=== PATIENT | male | born 1940 | race Caucasian/White ===

== ENCOUNTER 2018-09-24 14:00 | Emergency (ER) | payer MEDICARE ==
[2018-09-24] MEDS ORDERED: LIDOCAINE 1% INJ-PF (10 MG/ML) 30 ML SDV INJ ONE (15:24)
--- NOTE | 2018-09-24 15:24 | ER Document Report ---
ED General - General Chief Complaint: Weakness Stated Complaint: WEAKNESS Time Seen by Provider: 09/24/18 14:57 Notes: This is an 78-year-old male to the emergency department chief complaint of altered mental status. Family member states that they have not seen him for a few days. Here in town visiting. Noticed that he was more confused. Seemed to not be eating and drinking as much. Seem to be complaining of abdominal pain. States that they recently had a evaluation by his primary care doctor and everything was "normal". Patient denies any fever, chills, sweats. TRAVEL OUTSIDE OF THE [place] IN LAST 30 DAYS: No - HPI Onset/Duration: Gradual, Constant Quality of pain: Achy Severity: Moderate Pain Level: 1 Associated symptoms: Body/muscle aches, Slow to respond, Weakness - Related Data Allergies/Adverse Reactions: No Known Allergies Allergy (Verified 09/24/18 15:23) Past Medical History - General Information source: Patient, Relative - Social History Smoking Status: Former Smoker Frequency of alcohol use: None Drug Abuse: None Lives with: Family Family History: Reviewed & Not Pertinent - Past Medical History Cardiac Medical History: Reports: Hx Atrial Fibrillation Neurological Medical History: Reports: Other - Dementia Malignancy Medical History: Reports None Review of Systems - Review of Systems Notes: Constitutional: denies: Chills, Diaphoresis, Fever, complaining of weakness EENT: denies: Eye discharge, Blurred vision, Tearing, Double vision, Nose congestion, Nose discharge, Throat swelling, Mouth pain Cardiovascular: denies: Palpitations, Heart racing, Orthopnea, Dyspnea, Chest pain Respiratory: denies: Cough, Hurts to breathe, Wheezing, Shortness of breath Gastrointestinal: denies: Abdominal pain, Diarrhea, Nausea, Vomiting, Black stools, bright red blood in stool Genitourinary: denies: Burning, Dysuria, Discharge, Frequency, Flank pain, Hematuria Musculoskeletal: denies: Joint pain, Joint swelling, Muscle pain, Muscle stiffness, back pain Hematologic/Lymphatic: denies: Anemia, Easy bleeding, Easy bruising, Blood clots Neurological/Psychological: Complaining of dementia and confusion Skin: No lesions, no masses, no skin breakdown, no abscesses Physical Exam - Vital signs Vitals: BP 118/40 L 09/24/18 14:46 Interpretation: Bradycardic - General General appearance: Appears well, Alert - HEENT Head: Normocephalic, Atraumatic Eyes: Normal Pupils: PERRL Mucous membranes: Dry Pharynx: Normal Neck: Normal - Respiratory Respiratory status: No respiratory distress Chest status: Nontender Breath sounds: Rales Chest palpation: Normal - Cardiovascular Rhythm: Regular Heart sounds: Normal auscultation Murmur: No - Abdominal Inspection: Normal Distension: No distension Bowel sounds: Normal Tenderness: Nontender Organomegaly: No organomegaly - Back Back: Normal, Nontender - Extremities General upper extremity: Normal inspection, Nontender, Normal color, Normal ROM , Normal temperature General lower extremity: Normal inspection, Nontender, Normal color, Normal ROM , Normal temperature, Normal weight bearing. No: Meme's sign - Neurological Neuro grossly intact: Yes Cognition: Confused, Short term memory loss Pati Coma Scale Eye Opening: Spontaneous Rome Coma Scale Verbal: Oriented [place] Coma Scale Motor: Obeys Commands Rome Coma Scale Total: 15 Speech: Normal Motor strength normal: LUE, RUE, LLE, RLE Sensory: Normal - Psychological Associated symptoms: Normal affect, Normal mood - Skin Skin Temperature: Warm Skin Moisture: Dry Skin Color: Other - Patient has a 5 cm x 5 cm cyst on the left posterior back/ scapular area. Mild amount of redness but no lymphangitic streaking or signs of significant cellulitis. Course - Re-evaluation Re-evalutation: 09/24/18 19:40 Patient has multiple things wrong with him. Has acute transaminitis, congestive heart failure, acute kidney injury, confusion. Ultrasound was ordered which showed some mass lesions in the liver. CT scan of the head chest abdomen and pelvis performed without contrast. 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 Also may have a pneumonia. Based on all of these things going on patient needs a higher level of care. Family members live closer to [place] and is requesting that we send him there. At this time I am comfortable with that. Patient has been accepted by Dr. Larkin at [facility]. Giving patient's a little bit of fluid and some IV antibiotics at this time. Initially I was thinking I would I&D the lesion on the left of the back however I think I will leave that at this time as I do not want this to be some sort of malignant complication or issue. Family members are comfortable with this plan. Will transfer shortly. 09/24/18 19:42 Chest X-Ray 09/24/18 15:23 IMPRESSION: Chronic bibasilar interstitial change. Borderline cardiomegaly. Abdomen Ultrasound 09/24/18 16:20 IMPRESSION: Multiple low-density lesions in the liver suggestive of metastases. Borderline common bile duct. Cholelithiasis. Renal cysts. Abdomen/Pelvis CT 09/24/18 17:57 IMPRESSION: 1. Multiple low-density lesions in the liver suggestive of metastatic disease. 2. 3 cm heterogeneous apparently solid lesion in the right kidney concerning for neoplasm. Recommend ultrasound. 3. There is what appears to be a well-circumscribed cyst in the left kidney that measures some 20 Hounsfield units. This may represent a slightly hyperdense cyst. 4. Bilateral inguinal hernias containing unobstructed bowel. Head CT 09/24/18 17:57 IMPRESSION: Microvascular ischemia and generalized atrophy. No acute intracranial imaging findings. Cannot exclude chronic small left subdural fluid collection, although this may merely be secondary to the atrophy. EVIDENCE OF ACUTE STROKE: NO. Chest CT 09/24/18 18:26 IMPRESSION: 1. Mild pulmonary emphysema. 2. There is fairly dense opacification in the right lower lobe. There is also diffuse fine nodularity in the right lower lobe raising the possibility of an atypical pneumonia. 3. There are couple small subpleural nodules. Follow-up as described below. 4. Cardiomegaly with no marcel pulmonary edema. 5. Mild mediastinal adenopathy. Laboratory 09/24/18 09/24/18 09/24/18 15:03 15:03 15:03 WBC 13.1 H RBC 3.66 L Hgb 11.4 L Hct 34.1 L MCV 93 MCH 31.1 MCHC 33.4 RDW 13.1 Plt Count 343 Seg Neutrophils % 80.2 H Lymphocytes % 8.8 L Monocytes % 10.1 Eosinophils % 0.7 Basophils % 0.2 Absolute Neutrophils 10.5 H Absolute Lymphocytes 1.1 Absolute Monocytes 1.3 Absolute Eosinophils 0.1 Absolute Basophils 0.0 Sodium 139.8 Potassium 5.2 H Chloride 102 Carbon Dioxide 25 Anion Gap 13 BUN 59 H Creatinine 2.43 H Est GFR ( Amer) 31 L Est GFR (Non-Af Amer) 26 L Glucose 126 H Lactic Acid 1.2 Calcium 11.2 H Total Bilirubin 0.4 Direct Bilirubin 0.4 Neonat Total Bilirubin Not Reportable Neonat Direct Bilirubin Not Reportable Neonat Indirect Bili Not Reportable AST 116 H ALT 143 H Alkaline Phosphatase 252 H Creatine Kinase 23 L CK-MB (CK-2) Troponin I NT-Pro-B Natriuret Pep Total Protein 6.5 Albumin 3.1 L Lipase Urine Color Urine Appearance Urine pH Ur Specific Webb Urine Protein Urine Glucose (UA) Urine Ketones Urine Blood Urine Nitrite Urine Bilirubin Urine Urobilinogen Ur Leukocyte Esterase Urine WBC (Auto) Urine RBC (Auto) U Hyaline Cast (Auto) Urine Bacteria (Auto) Squamous Epi Cells Auto Calcium Oxalate Cr Auto Urine Mucus (Auto) Urine Ascorbic Acid 09/24/18 09/24/18 09/24/18 15:03 15:03 15:03 WBC RBC Hgb Hct MCV MCH MCHC RDW Plt Count Seg Neutrophils % Lymphocytes % Monocytes % Eosinophils % Basophils % Absolute Neutrophils Absolute Lymphocytes Absolute Monocytes Absolute Eosinophils Absolute Basophils Sodium Potassium Chloride Carbon Dioxide Anion Gap BUN Creatinine Est GFR ( Amer) Est GFR (Non-Af Amer) Glucose Lactic Acid Calcium Total Bilirubin Direct Bilirubin Neonat Total Bilirubin Neonat Direct Bilirubin Neonat Indirect Bili AST ALT Alkaline Phosphatase Creatine Kinase CK-MB (CK-2) 1.71 Troponin I 0.042 NT-Pro-B Natriuret Pep 7870 H Total Protein Albumin Lipase 112.6 Urine Color Urine Appearance Urine pH Ur Specific Webb Urine Protein Urine Glucose (UA) Urine Ketones Urine Blood Urine Nitrite Urine Bilirubin Urine Urobilinogen Ur Leukocyte Esterase Urine WBC (Auto) Urine RBC (Auto) U Hyaline Cast (Auto) Urine Bacteria (Auto) Squamous Epi Cells Auto Calcium Oxalate Cr Auto Urine Mucus (Auto) Urine Ascorbic Acid 09/24/18 16:45 WBC RBC Hgb Hct MCV MCH MCHC RDW Plt Count Seg Neutrophils % Lymphocytes % Monocytes % Eosinophils % Basophils % Absolute Neutrophils Absolute Lymphocytes Absolute Monocytes Absolute Eosinophils Absolute Basophils Sodium Potassium Chloride Carbon Dioxide Anion Gap BUN Creatinine Est GFR ( Amer) Est GFR (Non-Af Amer) Glucose Lactic Acid Calcium Total Bilirubin Direct Bilirubin Neonat Total Bilirubin Neonat Direct Bilirubin Neonat Indirect Bili AST ALT Alkaline Phosphatase Creatine Kinase CK-MB (CK-2) Troponin I NT-Pro-B Natriuret Pep Total Protein Albumin Lipase Urine Color YELLOW Urine Appearance CLOUDY Urine pH 5.0 Ur Specific Webb 1.019 Urine Protein 100 H Urine Glucose (UA) NEGATIVE Urine Ketones NEGATIVE Urine Blood NEGATIVE Urine Nitrite NEGATIVE Urine Bilirubin NEGATIVE Urine Urobilinogen 2.0 H Ur Leukocyte Esterase NEGATIVE Urine WBC (Auto) 3 Urine RBC (Auto) 2 U Hyaline Cast (Auto) 165 Urine Bacteria (Auto) TRACE Squamous Epi Cells Auto 1 Calcium Oxalate Cr Auto FEW Urine Mucus (Auto) OCC Urine Ascorbic Acid NEGATIVE - Vital Signs Vital signs: Temp Pulse Resp BP Pulse Ox 20 131/76 H 98 09/24/18 19:02 09/24/18 19:02 09/24/18 19:02 - Laboratory Result Diagrams: 09/24/18 15:03 09/24/18 15:03 Laboratory results interpreted by me: 09/24/18 09/24/18 09/24/18 15:03 15:03 15:03 WBC 13.1 H RBC 3.66 L Hgb 11.4 L Hct 34.1 L Seg Neutrophils % 80.2 H Lymphocytes % 8.8 L Absolute Neutrophils 10.5 H Potassium 5.2 H BUN 59 H Creatinine 2.43 H Est GFR ( Amer) 31 L Est GFR (Non-Af Amer) 26 L Glucose 126 H Calcium 11.2 H AST 116 H ALT 143 H Alkaline Phosphatase 252 H Creatine Kinase 23 L NT-Pro-B Natriuret Pep 7870 H Albumin 3.1 L Urine Protein Urine Urobilinogen 09/24/18 16:45 WBC RBC Hgb Hct Seg Neutrophils % Lymphocytes % Absolute Neutrophils Potassium BUN Creatinine Est GFR ( Amer) Est GFR (Non-Af Amer) Glucose Calcium AST ALT Alkaline Phosphatase Creatine Kinase NT-Pro-B Natriuret Pep Albumin Urine Protein 100 H Urine Urobilinogen 2.0 H - EKG Interpretation by Me Additional EKG results interpreted by me: 09/24/18 19:40 And has a intermittent A. fib rate in the 50s with a junctional escape beats. Critical Care Note - Critical Care Note Total time excluding time spent on procedures (mins): 60 Comments: Bradycardia, congestive heart failure, acute kidney failure, consultation with specialist, coordination of transfer of care. Discharge - Discharge Clinical Impression: Acute kidney injury, Acute hepatitis Pneumonia Qualifiers: Pneumonia type: due to unspecified organism Laterality: bilateral Lung location : lower lobe of lung Qualified Code(s): J18.1 - Lobar pneumonia, unspecified organism Condition: Good Disposition: [facility]
[2018-09-24 15:32] LABS: ABSOLUTE EOSINOPHILS # (AUTO) 0.1 10^3/uL (0.0-0.6); ABSOLUTE LYMPHOCYTES (AUTO) 1.1 10^3/uL (0.5-4.7); ABSOLUTE MONOCYTES (AUTO) 1.3 10^3/uL (0.1-1.4); ABSOLUTE NEUT (AUTO) 10.5 10^3/uL (1.7-8.2); BASOPHILS % (AUTO) 0.2 % (0-2); EOSINOPHILS % (AUTO) 0.7 % (0-6); HEMATOCRIT 34.1 % (37.9-51.0); HEMOGLOBIN 11.4 g/dL (13.5-17.0); LYMPHOCYTES % (AUTO) 8.8 % (13-45); MEAN CORPUSCULAR HEMOGLOBIN 31.1 pg (27.0-33.4); MEAN CORPUSCULAR HGB CONC 33.4 g/dL (32.0-36.0); MEAN CORPUSCULAR VOLUME 93 fl (80-97); MONOCYTES % (AUTO) 10.1 % (3-13); PLATELET COUNT 343 10^3/uL (150-450); RED BLOOD COUNT 3.66 10^6/uL (4.35-5.55); RED CELL DISTRIBUTION WIDTH 13.1 % (11.5-14.0); SEGMENTED NEUTROPHILS % (AUTO) 80.2 % (42-78); TOTAL CELLS COUNTED % (AUTO) 100 %; WHITE BLOOD COUNT 13.1 10^3/uL (4.0-10.5)
[2018-09-24 15:40] LABS: ALANINE AMINOTRANSFERASE 143 U/L (21-72); ALBUMIN 3.1 g/dL (3.5-5.0); ALKALINE PHOSPHATASE 252 U/L (38-126); ANION GAP 13 (5-19); ASPARTATE AMINO TRANSFERASE 116 U/L (17-59); BILIRUBIN,DIRECT 0.4 mg/dL (0.0-0.4); BILIRUBIN,TOTAL 0.4 mg/dL (0.2-1.3); BLOOD UREA NITROGEN 59 mg/dL (7-20); CALCIUM 11.2 mg/dL (8.4-10.2); CARBON DIOXIDE 25 mmol/L (22-30); CHLORIDE 102 mmol/L (98-107); CREATINE KINASE 23 U/L (55-170); GLUCOSE 126 mg/dL (75-110); POTASSIUM 5.2 mmol/L (3.6-5.0); SODIUM 139.8 mmol/L (137-145); TOTAL PROTEIN 6.5 g/dL (6.3-8.2)
[2018-09-24 15:51] LABS: CREATINE KINASE MB 1.71 ng/mL (<4.55)
[2018-09-24 15:53] LABS: TROPONIN I 0.042 ng/mL
[2018-09-24] MEDS ORDERED: NORMAL SALINE 1000 ML 1,000 ML IV ONE (16:17)
[2018-09-24] MEDS ORDERED: CEFTRIAXONE INJ 1000 MG VIAL IV ONE (16:18)
--- NOTE | 2018-09-24 16:28 | RADIOLOGY REPORT (SQ) ---
EXAM DESCRIPTION: CHEST SINGLE VIEW COMPLETED DATE/TIME: 09/24/2018 4:18 pm REASON FOR STUDY: sob COMPARISON: None. EXAM PARAMETERS: NUMBER OF VIEWS: One view. TECHNIQUE: Single frontal radiographic view of the chest acquired. RADIATION DOSE: NA LIMITATIONS: None. FINDINGS: LUNGS AND PLEURA: Prominence of interstitial markings in lung base which could represent c hanges related to overlying soft tissues are chronic interstitial change. No acute airspace infiltra meredith. MEDIASTINUM AND HILAR STRUCTURES: No masses. Contour normal. HEART AND VASCULAR STRUCTURES: Borderline cardiac size. Pulmonary vasculature is normal. . BONES: No acute findings. HARDWARE: None in the chest. OTHER: Defibrillator pad overlying left lung base. Chest leads in place. IMPRESSION: Chronic bibasilar interstitial change. Borderline cardiomegaly. TECHNICAL DOCUMENTATION: JOB ID: [id number] 2010 [employer]- All Rights Reserved Reading location - IP/workstation name: [email or web address]
[2018-09-24 17:39] LABS: APPEARANCE,URINE CLOUDY; BILIRUBIN,URINE NEGATIVE (NEGATIVE); CALCIUM OXALATE CRYSTALS,URINE FEW /HPF; GLUCOSE, URINE NEGATIVE (NEGATIVE); KETONES,URINE NEGATIVE (NEGATIVE); LEUKOCYTE ESTERASE,URINE NEGATIVE (NEGATIVE); NITRITE,URINE NEGATIVE (NEGATIVE); PROTEIN,URINE 100 mg/dL (NEGATIVE); URINE SPECIFIC GRAVITY 1.019
[2018-09-24 17:49] LABS: COLOR,URINE YELLOW
--- NOTE | 2018-09-24 18:15 | RADIOLOGY REPORT (SQ) ---
EXAM DESCRIPTION: U/S ABDOMEN COMPLETE W/DOPPLER COMPLETED DATE/TIME: 09/24/2018 6:03 pm REASON FOR STUDY: elevated lft, altered mental status COMPARISON: None. TECHNIQUE: Dynamic and static grayscale images acquired of the abdomen and recorded on PACS. Additio jeronimo selected color Doppler and spectral images recorded. LIMITATIONS: None. FINDINGS: PANCREAS: No masses. Visualized pancreatic duct normal caliber. LIVER: Multiple hypoechoic hepatic masses. The largest measures 3.2 cm. LIVER VASCULATURE: Normal directional flow of the main portal vein and hepatic veins. GALLBLADDER: Gallbladder is contracted. There are stones. ULTRASOUND-DETECTED PINEDA'S SIGN: Negative. INTRAHEPATIC DUCTS AND COMMON DUCT: Common bile duct is borderline at 6.5 mm. There is no intrahepat ic ductal dilatation. INFERIOR VENA CAVA: Normal flow. AORTA: No aneurysm. RIGHT KIDNEY: Normal size, 11.6 cm. Normal echogenicity. No solid masses. Multiple cysts are pr esent. The largest measures 3.6 cm. No hydronephrosis. No calcifications. LEFT KIDNEY: Normal size, 10 cm. Normal echogenicity. No solid masses. Multiple cysts. The lar gest measures 5.4 cm. No hydronephrosis. No calcifications. SPLEEN: Normal size, 8.8 cm. No solid masses. PERITONEAL AND PLEURAL SPACES: No ascites or effusions. OTHER: No other significant finding. IMPRESSION: Multiple low-density lesions in the liver suggestive of metastases. Borderline common b ile duct. Cholelithiasis. Renal cysts. TECHNICAL DOCUMENTATION: JOB ID: [id number] [employer]- All Rights Reserved Reading location - IP/workstation name: [email or web address]
--- NOTE | 2018-09-24 19:12 | RADIOLOGY REPORT (SQ) ---
EXAM DESCRIPTION: CT HEAD WITHOUT COMPLETED DATE/TIME: 09/24/2018 7:00 pm REASON FOR STUDY: altered mental status COMPARISON: None. TECHNIQUE: Axial images acquired through the brain without intravenous contrast. Images reviewed wi th bone, brain and subdural windows. Additional sagittal and coronal reconstructions were generated. Images stored on PACS. All CT scanners at this facility use dose modulation, iterative reconstruction, and/or weight based d osing when appropriate to reduce radiation dose to as low as reasonably achievable (ALARA). [facility]: Dose Right [facility]: CareDose [facility]: Dose Right [facility]: Teradose 4D [facility]: [employer] RADIATION DOSE: CT Rad equipment meets quality standard of care and radiation dose reduction techniq ues were employed. CTDIvol: 48.7 mGy. DLP: 1026 mGy-cm. mGy. LIMITATIONS: None. FINDINGS: VENTRICLES: Prominent ventricles secondary to involutional atrophy. CEREBRUM: Cortical atrophy. No masses. No hemorrhage. No midline shift. No evidence for acute inf arction. Areas of low density in the white matter most likely chronic small vessel ischemic changes. CEREBELLUM: No masses. No hemorrhage. No alteration of density. No evidence for acute infarction. EXTRAAXIAL SPACES: There appears to be a small left subdural fluid collection. This is hypodense. ORBITS AND GLOBE: No intra- or extraconal masses. Normal contour of globe without masses. CALVARIUM: No fracture. PARANASAL SINUSES: Mucoperiosteal thickening is present in the maxillary sinuses and in some of the e thmoid air cells and in the frontal sinuses. SOFT TISSUES: No mass or hematoma. OTHER: No other significant finding. IMPRESSION: Microvascular ischemia and generalized atrophy. No acute intracranial imaging findings. Cannot exclude chronic small left subdural fluid collection, although this may merely be secondary to the atrophy. EVIDENCE OF ACUTE STROKE: NO. COMMENT: Quality ID # 436: Final reports with documentation of one or more dose reduction techniques (e.g., Automated exposure control, adjustment of the mA and/or kV according to patient size, use of iterative reconstruction technique) TECHNICAL DOCUMENTATION: JOB ID: [id number] [employer]- All Rights Reserved Reading location - IP/workstation name: [email or web address]
--- NOTE | 2018-09-24 19:16 | EKG REPORT ---
SEVERITY:- ABNORMAL ECG - SINUS RHYTHM PAIRED VENTRICULAR PREMATURE COMPLEXES SINUS PAUSE/ARREST WITH JUNCTIONAL ESCAPE RIGHT BUNDLE BRANCH BLOCK PROBABLE INFERIOR INFARCT, AGE INDETERMINATE : Confirmed by: Bel Neal MD 24-Sep-2018 19:15:30
--- NOTE | 2018-09-24 19:20 | RADIOLOGY REPORT (SQ) ---
EXAM DESCRIPTION: CT CHEST WITHOUT COMPLETED DATE/TIME: 09/24/2018 7:00 pm REASON FOR STUDY: tumor COMPARISON: None. TECHNIQUE: CT scan performed of the chest without intravenous contrast. Images reviewed with lung, soft tissue and bone windows. Reconstructed coronal and sagittal MPR images reviewed. All images st ored on PACS. All CT scanners at this facility use dose modulation, iterative reconstruction, and/or weight based d osing when appropriate to reduce radiation dose to as low as reasonably achievable (ALARA). [facility]: Dose Right [facility]: CareDose [facility]: Dose Right [facility]: Teradose 4D [facility]: [employer] RADIATION DOSE: mGy. LIMITATIONS: No technical limitations. FINDINGS: LUNGS AND PLEURA: Mild centrilobular emphysematous changes in the upper lobes. Dense opac ification in the right lower lobe with some air bronchograms. There is diffuse fine nodularity in th e right lower lobe. A couple small subpleural nodules are present. The larger is seen on image 48 m edially and measures 9 x 9 mm. HILAR AND MEDIASTINAL STRUCTURES: Mild precarinal and subcarinal adenopathy. HEART AND VASCULAR STRUCTURES: Cardiomegaly. No pleural effusion. UPPER ABDOMEN: See separate report of the CT of the abdomen. THYROID AND OTHER SOFT TISSUES: No masses. No adenopathy. BONES: No significant finding. HARDWARE: None in the chest. OTHER: No other significant findings. IMPRESSION: 1. Mild pulmonary emphysema. 2. There is fairly dense opacification in the right lower lobe. There is also diffuse fine nodulari ty in the right lower lobe raising the possibility of an atypical pneumonia. 3. There are couple small subpleural nodules. Follow-up as described below. 4. Cardiomegaly with no marcel pulmonary edema. 5. Mild mediastinal adenopathy. COMMENT: FLEISCHNER CRITERIA FOR FOLLOW-UP OF PULMONARY NODULES Incidentally detected new nodules in persons 35 or older. HIGH RISK: History of smoking or other known risk factors. >8mm multiple solid nodules: LOW RISK: CT 3-6 mo; then consider CT 18-24 mo. HIGH RISK: CT 3-6 mo; th en CT 18-24 mo. TECHNICAL DOCUMENTATION: JOB ID: [id number] Quality ID # [id number]: Final reports with documentation of one or more dose reduction techniques (e.g., Au tomated exposure control, adjustment of the mA and/or kV according to patient size, use of iterative reconstruction technique) 2010 [employer]- All Rights Reserved Reading location - IP/workstation name: [email or web address]
--- NOTE | 2018-09-24 19:29 | RADIOLOGY REPORT (SQ) ---
EXAM DESCRIPTION: CT ABD/PELVIS NO ORAL OR IV COMPLETED DATE/TIME: 09/24/2018 7:00 pm REASON FOR STUDY: abd pain, location of pain is not specified. There is no history. COMPARISON: None. TECHNIQUE: CT scan of the abdomen and pelvis performed without intravenous or oral contrast. Images reviewed with lung, soft tissue, and bone windows. Reconstructed coronal and sagittal MPR images revi ewed. All images stored on PACS. All CT scanners at this facility use dose modulation, iterative reconstruction, and/or weight based d osing when appropriate to reduce radiation dose to as low as reasonably achievable (ALARA). [facility]: Dose Right [facility]: CareDose [facility]: Dose Right [facility]: Teradose 4D [facility]: [employer] RADIATION DOSE: CT Rad equipment meets quality standard of care and radiation dose reduction techniq ues were employed. CTDIvol: 8.1 - 10.1 mGy. DLP: 977 mGy-cm.mGy. LIMITATIONS: None. FINDINGS: LOWER CHEST: See separate report of the CT of the chest. NON-CONTRASTED LIVER, SPLEEN, ADRENALS: There are multiple slightly ill-defined low-density lesions i n the liver. PANCREAS: No masses. No peripancreatic inflammatory changes. GALLBLADDER: Several small gallstones are present. RIGHT KIDNEY AND URETER: There is a 3 cm heterogeneous apparently solid lesion laterally in the right kidney. See image 32 series 3 renal vascular calcifications are present. No hydronephrosis or h ydroureter. LEFT KIDNEY AND URETER: No solid masses. There are several cysts. The largest is seen best on image 36 and measures about 20 Hounsfield units. This is 5 cm in diameter. Renal vascular calcification s. No hydronephrosis or hydroureter. AORTA AND RETROPERITONEUM: No aneurysm. No retroperitoneal masses or adenopathy. BOWEL AND PERITONEAL CAVITY: Mild diverticulosis. APPENDIX: Not identified. PELVIS, BLADDER, AND ABDOMINAL WALL:A catheter is present in the urinary bladder. No abnormal masses or fluid collections. Bilateral inguinal hernias, left more than right. Unobstructed bowel is pres ent within these. BONES: No significant findings. OTHER: No other significant finding. IMPRESSION: 1. Multiple low-density lesions in the liver suggestive of metastatic disease. 2. 3 cm heterogeneous apparently solid lesion in the right kidney concerning for neoplasm. Recommen d ultrasound. 3. There is what appears to be a well-circumscribed cyst in the left kidney that measures some 20 Ho unsfield units. This may represent a slightly hyperdense cyst. 4. Bilateral inguinal hernias containing unobstructed bowel. COMMENT: Quality ID # 436: Final reports with documentation of one or more dose reduction techniques (e.g., Automated exposure control, adjustment of the mA and/or kV according to patient size, use of iterative reconstruction technique) TECHNICAL DOCUMENTATION: JOB ID: [id number] [employer]- All Rights Reserved Reading location - IP/workstation name: [email or web address]
[2018-09-24] MEDS ORDERED: DOXYCYCLINE HYCLATE 100 MG TABLET PO ONE (19:42)
[2018-09-24] MEDS ORDERED: ALPRAZOLAM 0.25 MG TABLET PO ONE (20:05)
[2018-09-24 20:44] VITALS: BP 108/76
[2018-09-26 07:37] LABS: HEPATITIS B CORE AB IGM Negative (Negative); HEPATITS B SURFACE ANTIGEN Negative (Negative)
[2018-09-26 10:55] LABS: HEPATITIS C VIRUS ANTIBODY <0.1 s/co ratio (0.0-0.9)
[2018-09-26 10:56] LABS: HEPATITIS A AB IGM Positive (Negative)
== END 2018-09-24 21:00 | disposition short-term general hospital (02) ==
LOC: ER 14:00
DX: N17.9 Acute kidney failure, unspecified (principal); B17.9 Acute viral hepatitis, unspecified; J18.1 Lobar pneumonia, unspecified organism; R53.1 Weakness; R41.82 Altered mental status, unspecified; R10.9 Unspecified abdominal pain; Z87.891 Personal history of nicotine dependence
CPT/HCPCS: 93005; 99285; 96361; 51702; 96365; 36415; 87040; 87086; 82553; 82550; 83690; 85025; 80053; 81001; 84484; 83605; 80074; 83880; 71045; 76700; 93976; 70450; 71250; 74176; 93010; A9270 ×2; J0696; J7030